=== PATIENT | female | born 1945 | race Caucasian/White ===

== ENCOUNTER 2019-01-12 12:30 | Emergency (ER) | payer MEDICARE, BC ==
[2019-01-12] MEDS ORDERED: Fluorescein Opthalmic Strip ONE (12:57)
[2019-01-12] MEDS ORDERED: Proparacaine 0.5% Opth 15 ML BOT ONE (12:57)
[2019-01-12] MEDS ORDERED: HYDROcodone/Acetaminophen 5/325 mg Tablet ONE (14:45)
[2019-01-12 15:02] LABS: #Basophils 0.1 thou/uL (0.0-0.2); #Monocytes 0.2 thou/uL (0.11-0.59); #Neutrophils 3.6 thou/uL (1.40-6.50); %Basophils 1.3 % (0.0-1.0); %Eosinophils 0.9 % (0.0-10.0); %Lymphocytes 19.8 % (21.0-51.0); %Monocytes 4.9 % (0.0-10.0); %Neutrophils 73.1 % (42.0-75.0); Hemoglobin 13.3 g/dL (12.0-16.0); Mean Corpuscular HGB CONC 33.6 g/dL (32.0-36.0); Mean Corpuscular Volume 89.4 fL (78.0-98.0); Mean Platelet Volume 8.3 fL (7.4-10.4); Platelet Count 171 thou/uL (130-400); RBC Distribution Width 11.8 % (11.5-14.5); Red Blood Cell (RBC) Count 4.42 mill/uL (4.20-5.40); White Blood Cell (WBC) Count 4.9 thou/uL (4.8-10.8)
[2019-01-12 15:20] LABS: PTT 31.6 SEC (22.9-36.1)
[2019-01-12 15:23] LABS: ALT (SGPT) 14 U/L (8-55); AST (SGOT) 24 U/L (5-34); Albumin 4.6 g/dL (3.4-4.8); Alkaline Phosphatase 71 U/L (40-150); Anion Gap 12 mmol/L (10-20); BUN (Urea Nitrogen) 9 mg/dL (9.8-20.1); Bilirubin, Total 0.6 mg/dL (0.2-1.2); Calc. Creatinine Clearance 0 mL/min (70-130); Calcium 10.1 mg/dL (7.8-10.44); Carbon Dioxide 27 mmol/L (23-31); Chloride 99 mmol/L (98-107); Estimated GFR-MDRD 74; Globulin 2.7 g/dL (2.4-3.5); Glucose 101 mg/dL (83-110); Potassium 4.2 mmol/L (3.5-5.1); Protein, Total 7.3 g/dL (6.0-8.3); Sodium 134 mmol/L (136-145)
[2019-01-12 16:17] LABS: Bilirubin Negative (Negative); Blood, Urine Negative (Negative); Clarity Clear (Clear); Glucose, Urine (Dipstick) Negative (Negative); Leukocyte Negative (Negative); Nitrite Negative (Negative); Protein, Urine (Dipstick) Negative (Neg-Trace); Urobilinogen 0.2 mg/dL (0.2-1.0)
[2019-01-12 16:27] LABS: Amphetamine Not Detected (NotDetected); Barbiturates Screen Not Detected (NotDetected); Benzodiazepine Screen Not Detected (NotDetected); Cocaine Metabolite Screen Not Detected (NotDetected); Medtox Control Line Valid? VALID (VALID); Methadone Not Detected (NotDetected); Methamphetamine Not Detected (NotDetected); Opiate Screen Not Detected (NotDetected); Oxycodone Screen Not Detected (NotDetected); Phencyclidine (PCP) Not Detected (NotDetected); THC/Cannabinoid Screen Not Detected (NotDetected); Tricyclic Screen Not Detected (NotDetected)
--- NOTE | 2019-01-12 16:37 | CT ---
CTA HEAD WITH AND WITHOUT CONTRAST: 01/12/19 Multiple axial tomograms obtained through the head without IV enhancement. This is followed by multip le tomograms performed following the cerebral angio protocol with multiplanar reconstruction and 3D p ostprocessing. CT HEAD WITHOUT CONTRAST: Correlation made to a prior CT head of 12/30/16. INDICATION: Vision loss right eye. There is mild cortical atrophy which is stable from the prior exam. The ventricles have normal size a nd position. There is no evidence of intracranial hemorrhage, mass, or infarct. Sinuses and mastoids are well aerated. IMPRESSION: Mild cortical atrophy. No acute findings or significant change from prior study. CT ANGIO HEAD: INDICATION: Vision loss right eye. The intracranial internal carotid arteries are patent and symmetric. Middle cerebral arteries are pat ent and symmetric. Anterior cerebrals are patent and symmetric. Basilar artery is patent. IMPRESSION: Unremarkable CT cerebral angio study. CTA NECK: Multiple axial tomograms obtained through the neck following angio protocol with multiplanar reconstr uctions and 3D postprocessing. INDICATIONS: Vision loss right eye. FINDINGS: No evidence of stenosis seen at the origin of the arch vessels. Both common carotid arteries are patent and symmetric. Mild atherosclerotic change seen at the left bulb and left proximal ICA. No stenosis. Moderate atherosclerotic change seen in the right bulb and proximal right ICA. This does result in wh at appears to be mild ulceration at the proximal right ICA associated with calcified plaque. There is mild stenosis in the right ICA which is not hemodynamically significant estimated in the 20% range. There is high grade stenosis at the origin of the right external carotid artery. The right ICA above the bulb is unremarkable although somewhat tortuous. The vertebral arteries are patent and symmetric. There is focal opacity in the left lung apex which appears to represent areas of linear stranding. Co nsider elective chest CT to further evaluate the lung molina. I cannot exclude a small left apical no dule. IMPRESSION: 1. Atherosclerotic changes seen in both bulbs and proximal ICAs. No evidence of hemodynamically significant stenosis identified in either ICA; however, there is mild ulceration in the right bulb an d proximal ICA. Significant stenosis at the origin of the right ECA. 2. Stranding and nodularity in the left lung apex. Elective followup chest CT is recommended. Code LN POS: OFF
[2019-01-12] MEDS ORDERED: Aspirin Chewable 81 MG TAB ONE (17:24)
== END 2019-01-12 18:33 | disposition short-term general hospital (02) ==
LOC: SCSER 12:30
DX: I65.21 Occlusion and stenosis of right carotid artery (principal); K21.9 Gastro-esophageal reflux disease without esophagitis; I10 Essential (primary) hypertension; F32.9 Major depressive disorder, single episode, unspecified; Z79.899 Other long term (current) drug therapy
CPT/HCPCS: 36415; 70496; 80053; 80306; 81003; 85025; 85610; 85652; 85730; 93005

== ENCOUNTER 2020-01-16 09:16 | Outpatient (CLI) | payer MEDICARE, BC ==
--- NOTE | 2020-01-16 10:51 | CT ---
EXAM: CT Chest Abd Pelvis W Con PROVIDED CLINICAL HISTORY: Metastatic leiomyosarcoma COMPARISON: None available FINDINGS: Chest: Vascular calcification is noted. The heart, pericardium and great vessels demonstrate an otherwise un remarkable CT appearance. There is no evidence for thoracic lymph node enlargement. The airway appears patent and of normal caliber. No pleural fluid, pleural thickening or pneumothorax apparent. There is a bilobed nodule/adjacent nodules in aggregate measuring about 12 x 9 mm in greatest transve rse dimensions involving the right middle lobe (image 31 series 3). Parenchymal scarring is seen involving the left lung apex. Minimal nonspecific groundglass opacity seen at the posterior aspect of the right lung apex. Sub-4 mm noncalcified nodular density lateral aspect of right upper lobe. Abdomen/pelvis: The liver, spleen, pancreas, kidneys and adrenal glands demonstrate an unremarkable CT appearance. Th ere is a small hiatal hernia. There is an 8 mm enhancing nodule within the subcutaneous fat of the anterior abdominal wall slightly right of midline approximately 6 cm caudal to the xiphoid. There is no bowel dilatation, inflammatory fat stranding, free fluid or lymph node enlargement apparent. Postoperative changes are seen involving the left perineum. Focal areas of thinning involving the rec tus musculature right of midline and underlying mesh hernia repair. Extensive vascular calcification. Osseous structures: No concerning lytic or blastic lesions are evident. Degenerative changes are seen involving the spine . IMPRESSION: 1. Bilobed 1.2 cm nodule/adjacent nodules involving the right middle lobe and additional nodules as d escribed. Metastatic disease is not excluded. Correlate with prior studies. 2. 8 mm subcutaneous enhancing nodule. Metastatic disease is not excluded. Correlate with prior studi es.
[2020-01-16] MEDS ORDERED: Iopamidol-370 76% 500 ML 1 ML ONE (13:21)
== END 2020-01-16 09:17 | disposition home or self-care (01) ==
LOC: BICCT 09:16
DX: C49.9 Malignant neoplasm of connective and soft tissue, unspecified (principal); R91.8 Other nonspecific abnormal finding of lung field
CPT/HCPCS: 71260; 74177; 82565; Q9967